=== PATIENT | female | born 1975 | race Native Hawaiian/Other Pacific Islander ===

== ENCOUNTER 2016-10-05 09:47 | Outpatient (CLI) | payer BC | END 2016-10-05 19:47 | disposition home or self-care (01) | LOC: MAMMO 09:47 | DX: Z12.31 Encounter for screening mammogram for malignant neoplasm of breast (principal) | CPT/HCPCS: G0202-TC ==

== ENCOUNTER 2019-01-02 11:25 | Outpatient (CLI) | payer BC | END 2019-01-02 21:07 | disposition home or self-care (01) | LOC: RAD 11:25 | DX: M25.511 Pain in right shoulder (principal) ==

== ENCOUNTER 2021-05-20 13:31 | Outpatient (CLI) | payer BC, OTHER ==
[~2021-05-20] VITALS: Ht 175.3 cm; Wt 104.3 kg
== END 2021-05-20 21:15 | disposition home or self-care (01) ==
LOC: INF 13:31
PROVIDERS: ATTEND Internal Medicine
DX: Z23 Encounter for immunization (principal); U07.1 COVID-19
CPT/HCPCS: 96365; M0244